=== PATIENT | male | born 1970 | race Caucasian/White ===

== ENCOUNTER 2020-09-26 14:53 | Emergency (ER) | payer OTHER ==
[~2020-09-26] VITALS: Ht 177.8 cm; Wt 92.1 kg
== END 2020-09-26 17:15 | disposition home or self-care (01) ==
LOC: ED 14:53
DX: S60.221A Contusion of right hand, initial encounter (principal); F17.200 Nicotine dependence, unspecified, uncomplicated; W22.8XXA Striking against or struck by other objects, initial encounter; Y99.0 Civilian activity done for income or pay
CPT/HCPCS: 73130; 99283-25

== ENCOUNTER 2022-12-09 14:18 | Emergency (ER) | payer SELFPAY ==
[~2022-12-09] VITALS: Ht 177.8 cm; Wt 81.7 kg
[2022-12-09] MEDS ORDERED: METHYLPREDNISOLO4 M1 PO (17:36)
[2022-12-09] MEDS ORDERED: VISTARIL25 MG PO (17:36)
== END 2022-12-09 17:46 | disposition home or self-care (01) ==
LOC: ED 14:18
DX: L25.9 Unspecified contact dermatitis, unspecified cause (principal); F17.200 Nicotine dependence, unspecified, uncomplicated; Z79.899 Other long term (current) drug therapy; Z79.52 Long term (current) use of systemic steroids
CPT/HCPCS: J7512; Q0177

== ENCOUNTER 2024-03-14 14:11 | Emergency (ER) | payer SELFPAY ==
[~2024-03-14] VITALS: Ht 177.8 cm; Wt 73.5 kg
[~2024-03-14 14:11] MED LIST: METHYLPREDNISOLO4 M1 PO; VISTARIL25 MG PO
[2024-03-14] MEDS ORDERED: TETRACAINE HCL 0.5% 4 ML BTL OD ONE (14:45)
[2024-03-14] MEDS ORDERED: FLUORESCEIN SOD 1 EA STRP OD ONE (14:45)
[2024-03-14] MEDS ORDERED: ERYTHROMYCIN1 GM OP (15:21)
[2024-03-14 15:26] VITALS: BP 143/91
== END 2024-03-14 15:26 | disposition home or self-care (01) ==
LOC: ED 14:11
DX: S05.01XA Injury of conjunctiva and corneal abrasion without foreign body, right eye, initial encounter (principal); F17.200 Nicotine dependence, unspecified, uncomplicated; W22.8XXA Striking against or struck by other objects, initial encounter
CPT/HCPCS: 99283